=== PATIENT | male | born 1960 | race Caucasian/White ===

== ENCOUNTER → 2018-03-28 | Outpatient (CLI) | payer MEDICARE ==
[2018-03-22 09:01] VITALS: BP 114/70
[~2018-03-28] MED LIST: AMBIEN10 MG PO; ASPIR LOW81 MG PO; ATORVASTATIN CA20 MG PO; FLONASE ALLERG9.9 ML NS; GLYCOTROL CAPS1 EACH PO; LOSARTAN POTASS50 MG PO; OSTERA TABLET1 EACH PO; RT ADVAIR HFA 2312 G IH; SINGULAIR PO
== END ==
LOC: LAB 13:23
DX: Z12.11 Encounter for screening for malignant neoplasm of colon (principal); R73.03 Prediabetes; I10 Essential (primary) hypertension; E78.5 Hyperlipidemia, unspecified

== ENCOUNTER 2018-04-16 08:00 | Outpatient (RCR) | payer MEDICARE ==
[2018-03-22 09:01] VITALS: BP 114/70
== END 2018-04-16 08:30 | disposition home or self-care (01) ==
LOC: PT 08:00
DX: M48.061 Spinal stenosis, lumbar region without neurogenic claudication (principal); Z98.1 Arthrodesis status

== ENCOUNTER → 2019-01-10 | Outpatient (CLI) | payer OTHER, MEDICARE ==
[2018-03-22 09:01] VITALS: BP 114/70
== END ==
LOC: RAD 08:26
DX: M43.17 Spondylolisthesis, lumbosacral region (principal); Z98.890 Other specified postprocedural states

== ENCOUNTER → 2019-03-27 | Outpatient (CLI) | payer MEDICARE ==
[2018-03-22 09:01] VITALS: BP 114/70
== END ==
LOC: RAD 09:23
DX: R07.9 Chest pain, unspecified (principal); R06.02 Shortness of breath

== ENCOUNTER → 2019-05-23 | Outpatient (CLI) | payer MEDICARE ==
[2018-03-22 09:01] VITALS: BP 114/70
[2019-05-23 10:02] LABS: BASO # 0.1 (0.02-0.10); EOS # 0.6 (0.04-0.40); HEMATOCRIT 41.3 % (42.0-52.0); HEMOGLOBIN 13.8 g/dL (13.5-18.0); LYMPH# 2.1 (1.50-4.00); MEAN CELL VOLUME 93 fl (78-100); MEAN CORPUSCULAR HEMOGLOBIN 31 pg (27-31); MEAN CORPUSCULAR HGB CONC 33 g/dL (33-37); MEAN PLATELET VOLUME 10.2 fl (7.4-10.4); MONO # 0.7 (0.20-0.80); NEU # 6.5 (1.40-6.50); PLATELET COUNT 281 K/mm3 (130-400); RED BLOOD COUNT 4.44 M/mm3 (4.20-5.60); RED CELL DISTRIBUTION WIDTH 12.9 % (11.5-14.5); WHITE BLOOD COUNT 9.9 K/mm3 (4.8-10.8)
[2019-05-23 10:03] LABS: POTASSIUM 4.2 mmol/L (3.5-5.1)
[2019-05-23 10:04] LABS: CALCIUM 9.6 mg/dL (8.3-10.5)
[2019-05-23 10:06] LABS: TOTAL PROTEIN 7.1 g/dL (6.4-8.3)
[2019-05-23 10:08] LABS: TOTAL BILIRUBIN 0.9 mg/dL (0.2-1.2)
[2019-05-23 10:27] LABS: EOS % 5.5 % (0.0-4.0)
[2019-05-23 10:35] LABS: URINE APPEARANCE CLEAR; URINE BILIRUBIN NEGATIVE (NEGATIVE); URINE BLOOD NEGATIVE (NEGATIVE); URINE COLOR YELLOW; URINE GLUCOSE NEGATIVE (NEGATIVE); URINE KETONE NEGATIVE (NEGATIVE); URINE NITRATE NEGATIVE (NEGATIVE); URINE PROTEIN(semi-quant) NEGATIVE (NEGATIVE); URINE UROBILINOGEN NORMAL (NORMAL)
[2019-05-23 10:36] LABS: URINE LEUKOCYTE ESTERASE NEGATIVE (NEGATIVE); URINE WBC 0-1 /hpf (0-3)
[2019-05-23 12:53] LABS: ERYTHROCYTE SEDIMENTATION RATE 6 mm/hr (0-20)
[2019-05-23 22:37] LABS: CREATININE OTHER SOURCE 46 mg/dL (())
[2019-05-23 22:56] LABS: TESTOSTERONE 787 ng/dL (221-716)
== END ==
LOC: LAB 09:33
PROVIDERS: Internal Medicine
DX: Z12.5 Encounter for screening for malignant neoplasm of prostate (principal); I10 Essential (primary) hypertension; K90.9 Intestinal malabsorption, unspecified; E78.5 Hyperlipidemia, unspecified; R73.09 Other abnormal glucose

== ENCOUNTER → 2019-06-02 | Outpatient (CLI) | payer MEDICARE ==
[2018-03-22 09:01] VITALS: BP 114/70
== END ==
LOC: LAB 13:52
DX: Z12.11 Encounter for screening for malignant neoplasm of colon (principal); I10 Essential (primary) hypertension; R73.09 Other abnormal glucose; E78.5 Hyperlipidemia, unspecified; K90.9 Intestinal malabsorption, unspecified

== ENCOUNTER → 2019-12-26 | Outpatient (CLI) | payer MEDICARE ==
[2018-03-22 09:01] VITALS: BP 114/70
[2019-12-26 08:40] LABS: EOS # 0.4 (0.04-0.40); HEMATOCRIT 41.5 % (42.0-52.0); HEMOGLOBIN 13.5 g/dL (13.5-18.0); LYMPH# 1.9 (1.50-4.00); MEAN CELL VOLUME 94 fl (78-100); MEAN CORPUSCULAR HEMOGLOBIN 31 pg (27-31); MEAN CORPUSCULAR HGB CONC 33 g/dL (33-37); MEAN PLATELET VOLUME 10.5 fl (7.4-10.4); NEU # 5.3 (1.40-6.50); PLATELET COUNT 234 K/mm3 (130-400); RED BLOOD COUNT 4.43 M/mm3 (4.20-5.60); RED CELL DISTRIBUTION WIDTH 12.1 % (11.5-14.5); WHITE BLOOD COUNT 8.6 K/mm3 (4.8-10.8)
[2019-12-26 08:49] LABS: CALCIUM 9.2 mg/dL (8.3-10.5)
[2019-12-26 08:51] LABS: TOTAL PROTEIN 6.7 g/dL (6.4-8.3)
[2019-12-26 08:52] LABS: TOTAL BILIRUBIN 0.5 mg/dL (0.2-1.2)
== END ==
LOC: LAB 08:02
PROVIDERS: Internal Medicine
DX: I10 Essential (primary) hypertension (principal); K90.9 Intestinal malabsorption, unspecified; E78.5 Hyperlipidemia, unspecified; R73.09 Other abnormal glucose

== ENCOUNTER → 2020-08-26 | Outpatient (CLI) | payer MEDICARE ==
[2018-03-22 09:01] VITALS: BP 114/70
[2020-08-26 09:28] LABS: EOS # 0.3 (0.04-0.40); EOS % 2.9 % (0.0-4.0); HEMOGLOBIN 15.5 g/dL (13.5-18.0); LYMPH# 1.7 (1.50-4.00); MEAN CELL VOLUME 92 fl (78-100); MEAN CORPUSCULAR HEMOGLOBIN 30 pg (27-31); MEAN CORPUSCULAR HGB CONC 33 g/dL (33-37); MEAN PLATELET VOLUME 10.5 fl (7.4-10.4); MONO # 0.7 (0.20-0.80); NEU # 7.3 (1.40-6.50); PLATELET COUNT 236 K/mm3 (130-400); RED CELL DISTRIBUTION WIDTH 12.3 % (11.5-14.5); WHITE BLOOD COUNT 10.1 K/mm3 (4.8-10.8)
[2020-08-26 09:45] LABS: ALBUMIN 4.4 g/dL (3.4-4.8)
[2020-08-26 09:47] LABS: CALCIUM 9.3 mg/dL (8.3-10.5)
[2020-08-26 09:48] LABS: TOTAL PROTEIN 7.6 g/dL (6.2-8.1)
[2020-08-26 09:50] LABS: TOTAL BILIRUBIN 0.9 mg/dL (0.2-1.2)
[2020-08-26 10:34] LABS: ERYTHROCYTE SEDIMENTATION RATE 5 mm/hr (0-20)
== END ==
LOC: LAB 09:10
PROVIDERS: Internal Medicine
DX: I10 Essential (primary) hypertension (principal)

== ENCOUNTER → 2020-09-20 | Outpatient (CLI) | payer MEDICARE ==
[2018-03-22 09:01] VITALS: BP 114/70
== END ==
LOC: LAB 14:54
DX: Z01.812 Encounter for preprocedural laboratory examination (principal); Z20.822 Contact with and (suspected) exposure to COVID-19

== ENCOUNTER → 2020-09-23 | Day surgery (SDC) | payer MEDICARE ==
[2018-03-22 09:01] VITALS: BP 114/70
== END ==
LOC: MSO 09:06
DX: K21.9 Gastro-esophageal reflux disease without esophagitis (principal); K29.70 Gastritis, unspecified, without bleeding; I10 Essential (primary) hypertension; J45.909 Unspecified asthma, uncomplicated; G47.33 Obstructive sleep apnea (adult) (pediatric); M48.00 Spinal stenosis, site unspecified; F41.9 Anxiety disorder, unspecified; Z99.89 Dependence on other enabling machines and devices; Z20.822 Contact with and (suspected) exposure to COVID-19; Z79.82 Long term (current) use of aspirin; Z79.899 Other long term (current) drug therapy
CPT/HCPCS: 00731; J2704; J7120

== ENCOUNTER → 2021-07-01 | Outpatient (CLI) | payer MEDICARE ==
[2021-07-01 10:11] LABS: BASO # 0.02 K/mm3 (0.02-0.10); EOS % 4.1 % (0.0-4.0); HEMATOCRIT 45.5 % (42.0-52.0); LYMPH# 1.76 K/mm3 (1.50-4.00); MEAN CELL VOLUME 93 fl (78-100); MEAN CORPUSCULAR HEMOGLOBIN 31 pg (27-31); MEAN CORPUSCULAR HGB CONC 33 g/dL (33-37); MEAN PLATELET VOLUME 10.5 fl (7.4-10.4); MONO # 0.67 K/mm3 (0.20-0.80); NEU # 6.97 K/mm3 (1.40-6.50); PLATELET COUNT 253 K/mm3 (130-400); RED BLOOD COUNT 4.87 M/mm3 (4.20-5.60); RED CELL DISTRIBUTION WIDTH 11.7 % (11.5-14.5); WHITE BLOOD COUNT 9.8 K/mm3 (4.8-10.8)
[2021-07-01 10:15] LABS: ALBUMIN 4.2 g/dL (3.4-4.8)
[2021-07-01 10:16] LABS: POTASSIUM 4.4 mmol/L (3.5-5.1)
[2021-07-01 10:17] LABS: CALCIUM 9.2 mg/dL (8.3-10.5)
[2021-07-01 10:18] LABS: TOTAL PROTEIN 7.4 g/dL (6.2-8.1)
[2021-07-01 10:20] LABS: TOTAL BILIRUBIN 0.6 mg/dL (0.2-1.2)
[2021-07-01 10:24] LABS: MAGNESIUM 2.26 mg/dL (1.60-2.60)
[2021-07-01 12:08] LABS: URINE APPEARANCE CLEAR; URINE BILIRUBIN NEGATIVE (NEGATIVE); URINE BLOOD NEGATIVE (NEGATIVE); URINE COLOR YELLOW; URINE GLUCOSE NEGATIVE (NEGATIVE); URINE KETONE NEGATIVE (NEGATIVE); URINE LEUKOCYTE ESTERASE NEGATIVE (NEGATIVE); URINE MUCUS PRESENT (NOT PRESENT); URINE NITRATE NEGATIVE (NEGATIVE); URINE PROTEIN(semi-quant) TRACE mg/dL (NEGATIVE); URINE UROBILINOGEN NORMAL (NORMAL); URINE WBC 0-1 /hpf (0-3)
[2021-07-01 23:33] LABS: CREATININE OTHER SOURCE 129 mg/dL (())
== END ==
LOC: LAB 09:51
PROVIDERS: Internal Medicine
DX: Z12.5 Encounter for screening for malignant neoplasm of prostate (principal); Z12.11 Encounter for screening for malignant neoplasm of colon; I10 Essential (primary) hypertension; R73.03 Prediabetes; K90.9 Intestinal malabsorption, unspecified

== ENCOUNTER 2021-07-14 13:51 | Emergency (ER) | payer MEDICARE ==
[2021-07-14] MEDS ORDERED: SINGULAIR 110 MG/TAB PO (14:05)
[2021-07-14] MEDS ORDERED: ESCITALOPRAM10 MG PO (14:05)
[2021-07-14] MEDS ORDERED: VITAMIN D310 MC3 PO (14:05)
[2021-07-14] MEDS ORDERED: KLONOPIN 0.5MG0.5 MG PO (14:05)
[2021-07-14] MEDS ORDERED: OMEPRAZOLE40 MG PO (14:05)
[2021-07-14] MEDS ORDERED: LOSARTAN POTASS50 M1 PO (14:05)
[2021-07-14] MEDS ORDERED: TIZANIDINE HYDRO4 MG PO (14:06)
[2021-07-14] MEDS ORDERED: ZOLPIDEM TART10 MG PO (14:06)
[2021-07-14 15:25] VITALS: BP 110/77
== END 2021-07-14 15:22 | disposition home or self-care (01) ==
LOC: ED 13:51
DX: M25.512 Pain in left shoulder (principal); I10 Essential (primary) hypertension; J45.909 Unspecified asthma, uncomplicated; E11.9 Type 2 diabetes mellitus without complications; K21.9 Gastro-esophageal reflux disease without esophagitis; F41.9 Anxiety disorder, unspecified; E78.5 Hyperlipidemia, unspecified; Z98.890 Other specified postprocedural states; Z79.51 Long term (current) use of inhaled steroids; Z79.899 Other long term (current) drug therapy; Z79.82 Long term (current) use of aspirin; W10.8XXA Fall (on) (from) other stairs and steps, initial encounter

== ENCOUNTER → 2021-12-30 | Outpatient (CLI) | payer MEDICARE ==
[~2021-12-30] MED LIST changes: +ESCITALOPRAM10 MG PO; +KLONOPIN 0.5MG0.5 MG PO; +LOSARTAN POTASS50 M1 PO; +OMEPRAZOLE40 MG PO; +SINGULAIR 110 MG/TAB PO; +TIZANIDINE HYDRO4 MG PO; +VITAMIN D310 MC3 PO; +ZOLPIDEM TART10 MG PO
[2021-12-30 10:13] LABS: BASO # 0.03 K/mm3 (0.02-0.10); EOS # 0.02 K/mm3 (0.04-0.40); EOS % 0.2 % (0.0-4.0); HEMATOCRIT 40.7 % (42.0-52.0); HEMOGLOBIN 13.2 g/dL (13.5-18.0); LYMPH# 1.79 K/mm3 (1.50-4.00); MEAN CELL VOLUME 95 fl (78-100); MEAN CORPUSCULAR HEMOGLOBIN 31 pg (27-31); MEAN CORPUSCULAR HGB CONC 32 g/dL (33-37); MEAN PLATELET VOLUME 10.6 fl (7.4-10.4); MONO # 0.77 K/mm3 (0.20-0.80); NEU # 5.99 K/mm3 (1.40-6.50); PLATELET COUNT 222 K/mm3 (130-400); RED BLOOD COUNT 4.28 M/mm3 (4.20-5.60); RED CELL DISTRIBUTION WIDTH 12.3 % (11.5-14.5); WHITE BLOOD COUNT 8.6 K/mm3 (4.8-10.8)
[2021-12-30 11:10] LABS: POTASSIUM 3.9 mmol/L (3.5-5.1)
[2021-12-30 11:12] LABS: CALCIUM 9.2 mg/dL (8.3-10.5)
[2021-12-30 11:13] LABS: TOTAL PROTEIN 6.8 g/dL (6.2-8.1)
[2021-12-30 11:15] LABS: TOTAL BILIRUBIN 0.7 mg/dL (0.2-1.2)
[2021-12-30 11:20] LABS: MAGNESIUM 1.96 mg/dL (1.60-2.60)
== END ==
LOC: LAB 09:55
PROVIDERS: Internal Medicine
DX: Z23 Encounter for immunization (principal); R73.03 Prediabetes; I10 Essential (primary) hypertension; E78.5 Hyperlipidemia, unspecified; K90.9 Intestinal malabsorption, unspecified; J45.909 Unspecified asthma, uncomplicated; F41.1 Generalized anxiety disorder; K21.00 Gastro-esophageal reflux disease with esophagitis, without bleeding; D23.5 Other benign neoplasm of skin of trunk; R63.0 Anorexia; G47.33 Obstructive sleep apnea (adult) (pediatric); M48.061 Spinal stenosis, lumbar region without neurogenic claudication

== ENCOUNTER → 2023-08-27 | Outpatient (CLI) | payer MEDICARE ==
[2023-08-27 14:44] LABS: BASO # 0.02 K/mm3 (0.02-0.10); EOS # 0.07 K/mm3 (0.04-0.40); EOS % 0.7 % (0.0-4.0); HEMATOCRIT 43.4 % (42.0-52.0); HEMOGLOBIN 14.5 g/dL (13.5-18.0); LYMPH# 2.28 K/mm3 (1.50-4.00); MEAN CELL VOLUME 93 fl (78-100); MEAN CORPUSCULAR HEMOGLOBIN 31 pg (27-31); MEAN CORPUSCULAR HGB CONC 33 g/dL (33-37); MEAN PLATELET VOLUME 10.1 fl (7.4-10.4); MONO # 0.62 K/mm3 (0.20-0.80); PLATELET COUNT 220 K/mm3 (130-400); RED BLOOD COUNT 4.67 M/mm3 (4.20-5.60); RED CELL DISTRIBUTION WIDTH 11.6 % (11.5-14.5); WHITE BLOOD COUNT 9.7 K/mm3 (4.8-10.8)
[2023-08-27 14:53] LABS: ALBUMIN 4.2 g/dL (3.4-4.8)
[2023-08-27 14:54] LABS: CALCIUM 9.6 mg/dL (8.3-10.5)
[2023-08-27 14:56] LABS: TOTAL PROTEIN 7.6 g/dL (6.2-8.1)
[2023-08-27 14:57] LABS: TOTAL BILIRUBIN 0.4 mg/dL (0.2-1.2)
[2023-08-27 15:03] LABS: MAGNESIUM 2.23 mg/dL (1.60-2.60)
[2023-08-27 15:49] LABS: PH-URINE 5.5 (5.0 - 8.0); URINE APPEARANCE CLEAR (CLEAR); URINE BILIRUBIN NEGATIVE (NEGATIVE); URINE COLOR YELLOW (YELLOW); URINE GLUCOSE NEGATIVE (NEGATIVE); URINE KETONE NEGATIVE (NEGATIVE); URINE PROTEIN(semi-quant) NEGATIVE (NEGATIVE)
[2023-08-27 15:50] LABS: URINE BLOOD NEGATIVE (NEGATIVE); URINE LEUKOCYTE ESTERASE NEGATIVE (NEGATIVE); URINE NITRATE NEGATIVE (NEGATIVE); URINE WBC 0-1 /hpf (0-3)
== END ==
LOC: LAB 14:31
PROVIDERS: Internal Medicine
DX: Z12.5 Encounter for screening for malignant neoplasm of prostate (principal); I10 Essential (primary) hypertension; E78.5 Hyperlipidemia, unspecified; R73.03 Prediabetes

== ENCOUNTER → 2023-10-08 | Outpatient (CLI) | payer MEDICARE ==
[2023-10-08 08:57] LABS: ALBUMIN 4.1 g/dL (3.4-4.8)
[2023-10-08 08:58] LABS: CALCIUM 9.5 mg/dL (8.3-10.5)
[2023-10-08 09:00] LABS: TOTAL PROTEIN 7.3 g/dL (6.2-8.1)
[2023-10-08 09:01] LABS: BASO # 0.03 K/mm3 (0.02-0.10); EOS # 0.04 K/mm3 (0.04-0.40); EOS % 0.4 % (0.0-4.0); HEMATOCRIT 46.1 % (42.0-52.0); HEMOGLOBIN 15.2 g/dL (13.5-18.0); LYMPH# 2.17 K/mm3 (1.50-4.00); MEAN CELL VOLUME 94 fl (78-100); MEAN CORPUSCULAR HEMOGLOBIN 31 pg (27-31); MEAN CORPUSCULAR HGB CONC 33 g/dL (33-37); MEAN PLATELET VOLUME 10.6 fl (7.4-10.4); MONO # 0.77 K/mm3 (0.20-0.80); NEU # 7.27 K/mm3 (1.40-6.50); PLATELET COUNT 244 K/mm3 (130-400); RED BLOOD COUNT 4.93 M/mm3 (4.20-5.60); RED CELL DISTRIBUTION WIDTH 11.7 % (11.5-14.5); WHITE BLOOD COUNT 10.3 K/mm3 (4.8-10.8)
[2023-10-08 09:02] LABS: TOTAL BILIRUBIN 0.5 mg/dL (0.2-1.2)
[2023-10-08 09:06] LABS: MAGNESIUM 2.15 mg/dL (1.60-2.60)
[2023-10-11 12:10] LABS: VITAMIN B1 131.2 nmol/L (())
== END ==
LOC: LAB 08:39
PROVIDERS: Internal Medicine
DX: I10 Essential (primary) hypertension (principal); R73.03 Prediabetes; R20.2 Paresthesia of skin; F52.21 Male erectile disorder

== ENCOUNTER → 2024-02-22 | Outpatient (CLI) | payer MEDICARE | LOC: RAD 07:10 | DX: M47.812 Spondylosis without myelopathy or radiculopathy, cervical region (principal); M48.04 Spinal stenosis, thoracic region; M51.34 Other intervertebral disc degeneration, thoracic region ==

== ENCOUNTER → 2024-03-07 | Outpatient (CLI) | payer MEDICARE ==
[~2024-03-07] VITALS: Ht 165.1 cm; Wt 74.5 kg
== END ==
LOC: AMSURD 09:50
DX: R55 Syncope and collapse (principal)

== ENCOUNTER → 2024-03-31 | Outpatient (CLI) | payer MEDICARE ==
[2024-03-31 12:22] LABS: MAGNESIUM 2.21 mg/dL (1.60-2.60)
== END ==
LOC: LAB 11:54
PROVIDERS: Internal Medicine
DX: E78.5 Hyperlipidemia, unspecified (principal); M62.81 Muscle weakness (generalized)

== ENCOUNTER → 2024-10-21 | Outpatient (CLI) | payer MEDICARE ==
[2024-10-21 12:47] LABS: URINE WBC 0 /hpf (0-3)
[2024-10-21 12:58] LABS: BASO # 0.02 K/mm3 (0.02-0.10); EOS # 0.04 K/mm3 (0.04-0.40); EOS % 0.4 % (0.0-4.0); HEMATOCRIT 42.8 % (42.0-52.0); HEMOGLOBIN 14.5 g/dL (13.5-18.0); LYMPH# 2.82 K/mm3 (1.50-4.00); MEAN CELL VOLUME 93 fl (78-100); MEAN CORPUSCULAR HEMOGLOBIN 31 pg (27-31); MEAN CORPUSCULAR HGB CONC 34 g/dL (33-37); MEAN PLATELET VOLUME 10.3 fl (7.4-10.4); MONO # 0.81 K/mm3 (0.20-0.80); NEU # 6.24 K/mm3 (1.40-6.50); PLATELET COUNT 240 K/mm3 (130-400); RED BLOOD COUNT 4.62 M/mm3 (4.20-5.60); RED CELL DISTRIBUTION WIDTH 11.7 % (11.5-14.5); WHITE BLOOD COUNT 9.9 K/mm3 (4.8-10.8)
[2024-10-21 13:03] LABS: ALBUMIN 4.2 g/dL (3.4-4.8)
[2024-10-21 13:06] LABS: TOTAL PROTEIN 7.8 g/dL (6.2-8.1)
[2024-10-21 13:08] LABS: TOTAL BILIRUBIN 0.4 mg/dL (0.2-1.2)
[2024-10-21 13:12] LABS: MAGNESIUM 2.07 mg/dL (1.60-2.60)
[2024-10-21 13:17] LABS: URINE APPEARANCE CLEAR (CLEAR); URINE COLOR YELLOW (YELLOW)
[2024-10-21 13:19] LABS: URINE BILIRUBIN NEGATIVE (NEGATIVE); URINE BLOOD NEGATIVE (NEGATIVE); URINE GLUCOSE NEGATIVE (NEGATIVE); URINE KETONE NEGATIVE (NEGATIVE); URINE LEUKOCYTE ESTERASE NEGATIVE (NEGATIVE); URINE NITRATE NEGATIVE (NEGATIVE); URINE PROTEIN(semi-quant) NEGATIVE (NEGATIVE)
[2024-10-21 22:33] LABS: CREATININE OTHER SOURCE 85 mg/dL (47-110)
== END ==
LOC: LAB 12:40
PROVIDERS: Internal Medicine
DX: I10 Essential (primary) hypertension (principal); E78.5 Hyperlipidemia, unspecified; R73.03 Prediabetes